=== PATIENT | male | born 1985 | race American Indian/Alaskan Native ===

== ENCOUNTER 2017-04-04 01:45 | Emergency (ER) | payer BC ==
[2017-04-04] MEDS ORDERED: NACL 0.9% 1000 ML 1,000 ML IV ONE ×2 (01:56→05:14)
[2017-04-04] MEDS ORDERED: MORPHINE IV ONE (01:56)
[2017-04-04] MEDS ORDERED: BOOSTRIX IM ONE (01:57)
[2017-04-04] MEDS ORDERED: ANCEF/NS 1 GM/50 ML 1 GM/50 ML BAG IV ONE (01:57)
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
[2017-04-04 02:04] LABS: Basophils % (Auto) 0.2 % (0.0-1.8); Eosinophils % (Auto) 0.4 % (0.0-4.3); Hematocrit 37.3 % (35.5-45.6); Hemoglobin 12.9 gm/dl (11.8-15.2); Mean Corpuscular HGB Conc 35 % (32-34); Mean Corpuscular Hemoglobin 33 pg (28-32); Mean Corpuscular Volume 94 fl (84-94); Platelet Count 198 K/mm3 (140-440); Red Blood Count 3.97 M/mm3 (3.65-5.03); Red Cell Distribution Width 12.1 % (13.2-15.2); White Blood Count 5.6 K/mm3 (4.5-11.0)
[2017-04-04 02:12] LABS: INR 1.08 (0.87-1.13)
[2017-04-04 02:14] LABS: Anion Gap 19 mmol/L; BUN/Creatinine Ratio 11.81; Blood Urea Nitrogen 13 mg/dL (9-20); Calcium 8.7 mg/dL (8.4-10.2); Carbon Dioxide 20 mmol/L (22-30); Chloride 101.9 mmol/L (98-107); Creatine Kinase 236 units/L (55-170); Glucose 119 mg/dL (75-100); Potassium 3.7 mmol/L (3.6-5.0); Sodium 137 mmol/L (137-145)
[2017-04-04] MEDS ORDERED: NACL ONE (02:34)
[2017-04-04] MEDS ORDERED: XYLOCAINE 2%/ EPI 1:200,000 INFILTRATI ONE (02:52)
[2017-04-04] MEDS ORDERED: NACL 0.9% IR ONE (02:52)
[2017-04-04] MEDS ORDERED: NACL 0.9% 500 ML IR ONE (02:56)
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
[2017-04-04] MEDS ORDERED: NACL 0.9% 1000 ML 1,000 ML ONE (05:14)
[2017-04-04 05:16] VITALS: BP 96/61
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
== END 2017-04-04 06:00 | disposition short-term general hospital (02) ==
LOC: ED 01:45
DX: S71.111A Laceration without foreign body, right thigh, initial encounter (principal); S81.812A Laceration without foreign body, left lower leg, initial encounter; S82.142B Displaced bicondylar fracture of left tibia, initial encounter for open fracture type I or II; F17.210 Nicotine dependence, cigarettes, uncomplicated; W33.01XA Accidental discharge of shotgun, initial encounter; Y93.89 Activity, other specified; Y92.89 Other specified places as the place of occurrence of the external cause; Y99.8 Other external cause status
CPT/HCPCS: 12002; 36415; 70450; 71010; 72125; 72170; 73551; 73560; 73590; 75635; 80048; 82550; 82962; 85025; 85610; 86850; 86900; 86901; 90715; 96361; 96365; 96372; 96375; 99285; G0480; J0690; J2270; J7030; Q9967; 80320

== ENCOUNTER 2019-01-10 12:25 | Emergency (ER) | payer SELFPAY ==
[2019-01-10 12:38] VITALS: BP 114/74
--- NOTE | 2019-01-10 12:40 | Emergency Department Report ---
Chief Complaint: Abdominal Pain Stated Complaint: CHEST/BACK PAIN Time Seen by Provider: 01/10/19 12:36 - HPI History of Present Illness: This is a 33 y.o. male that presents with abdominal pain radiating to left flank. He reports pain as a sharp. - Exam Vital Signs: Vital Signs 01/10/19 12:36 Temperature 97.4 F L Pulse Rate 86 Respiratory 16 Rate Blood Pressure 114/74 [Right] O2 Sat by Pulse 97 Oximetry MSE screening note: Focused history and physical exam performed. Due to findings the following was ordered: labs and CT of abdomen & pelvis ED Disposition for MSE Condition: Stable
[2019-01-10 13:09] LABS: Basophils % (Auto) 0.2 % (0.0-1.8); Eosinophils % (Auto) 0.6 % (0.0-4.3); Hematocrit 33.3 % (35.5-45.6); Hemoglobin 11.5 gm/dl (11.8-15.2); Lymphocytes # (Auto) 1.1 K/mm3 (1.2-5.4); Lymphocytes % (Auto) 20.4 % (13.4-35.0); Mean Corpuscular HGB Conc 35 % (32-34); Mean Corpuscular Hemoglobin 34 pg (28-32); Mean Corpuscular Volume 97 fl (84-94); Monocytes # (Auto) 0.5 K/mm3 (0.0-0.8); Monocytes % (Auto) 9.1 % (0.0-7.3); Platelet Count 187 K/mm3 (140-440); Red Blood Count 3.43 M/mm3 (3.65-5.03); Red Cell Distribution Width 12.9 % (13.2-15.2)
[2019-01-10 13:23] LABS: Alanine Aminotransferase 6 units/L (7-56); Albumin 3.7 g/dL (3.9-5); BUN/Creatinine Ratio 11; Blood Urea Nitrogen 9 mg/dL (9-20); Calcium 8.6 mg/dL (8.4-10.2); Hemolysis Index 6
[2019-01-10 15:03] LABS: Bilirubin,Urine NEG (Negative); Blood,Urine SM (Negative); Color,Urine Yellow (Yellow); Protein,Urine <15 mg/dL mg/dL (Negative); Urobilinogen,Urine < 2.0 mg/dL (<2.0)
[2019-01-10] MEDS ORDERED: TORADOL IM ONE (15:48)
--- NOTE | 2019-01-10 15:53 | Emergency Department Report ---
ED Back Pain/Injury HPI - General Chief Complaint: Abdominal Pain Stated Complaint: CHEST/BACK PAIN Time Seen by Provider: 01/10/19 12:36 Source: patient Limitations: No Limitations - History of Present Illness Initial Comments: This is a 33-year-old healthy looking male who presents to ED complaining left- sided back/flank pain starting yesterday. Patient denies dysuria, hematuria, fever, nausea vomiting or diarrhea. Patient also denies trauma injuries to the back MD Complaint: back pain -: Last night Place: home Radiation: none Severity: moderate Quality: sharp Consistency: constant Associated Symptoms: denies: difficulty walking, abdominal pain, nausea/vomiting - Related Data Previous Rx's Medication Instructions Recorded Last Taken Type Azithromycin [Zithromax Z-MURPHY] 250 mg PO DAILY #6 tablet 04/09/16 Unknown Rx traMADol [Ultram 50 MG tab] 50 mg PO Q6HR PRN #20 tablet 01/10/19 Unknown Rx Azithromycin [Zithromax TAB] 500 mg PO QDAY #7 tablet 01/11/19 Unknown Rx Allergies Allergy/AdvReac Type Severity Reaction Status Date / Time No Known Allergies Allergy Unverified 04/09/16 14:13 ED Review of Systems ROS: Stated complaint: CHEST/BACK PAIN Other details as noted in HPI Comment: All other systems reviewed and negative ED Past Medical Hx - Past Medical History Previous Medical History?: No - Surgical History Past Surgical History?: No - Social History Smoking Status: Current Some Day Smoker Substance Use Type: Alcohol - Medications Home Medications: Home Medications Medication Instructions Recorded Confirmed Last Taken Type Azithromycin [Zithromax Z-MURPHY] 250 mg PO DAILY #6 tablet 04/09/16 Unknown Rx traMADol [Ultram 50 MG tab] 50 mg PO Q6HR PRN #20 tablet 01/10/19 Unknown Rx Azithromycin [Zithromax TAB] 500 mg PO QDAY #7 tablet 01/11/19 Unknown Rx ED Physical Exam - General Limitations: No Limitations General appearance: alert, in no apparent distress - Head Head exam: Present: atraumatic, normocephalic - Eye Eye exam: Present: normal appearance - ENT ENT exam: Present: mucous membranes moist - Neck Neck exam: Present: normal inspection - Respiratory Respiratory exam: Present: normal lung sounds bilaterally. Absent: respiratory distress - Cardiovascular Cardiovascular Exam: Present: regular rate, normal rhythm. Absent: systolic murmur, diastolic murmur, rubs, gallop - GI/Abdominal GI/Abdominal exam: Present: soft, normal bowel sounds. Absent: distended, tenderness, guarding, rebound, mass - Rectal Rectal exam: Present: deferred - Extremities Exam Extremities exam: Present: normal inspection - Back Exam Back exam: Present: normal inspection, full ROM, CVA tenderness (L). Absent: CVA tenderness (R) - Neurological Exam Neurological exam: Present: alert, oriented X3, normal gait - Psychiatric Psychiatric exam: Present: normal affect, normal mood - Skin Skin exam: Present: warm, dry, intact, normal color. Absent: rash ED Course Vital Signs 01/10/19 12:36 Temperature 97.4 F L Pulse Rate 86 Respiratory 16 Rate Blood Pressure 114/74 [Right] O2 Sat by Pulse 97 Oximetry ED Medical Decision Making - Lab Data Result diagrams: 01/10/19 12:50 01/10/19 12:50 Laboratory Last Values WBC 5.6 K/mm3 (4.5-11.0) 01/10/19 12:50 RBC 3.43 M/mm3 (3.65-5.03) L 01/10/19 12:50 Hgb 11.5 gm/dl (11.8-15.2) L 01/10/19 12:50 Hct 33.3 % (35.5-45.6) L 01/10/19 12:50 MCV 97 fl (84-94) H 01/10/19 12:50 MCH 34 pg (28-32) H 01/10/19 12:50 MCHC 35 % (32-34) H 01/10/19 12:50 RDW 12.9 % (13.2-15.2) L 01/10/19 12:50 Plt Count 187 K/mm3 (140-440) 01/10/19 12:50 Lymph % (Auto) 20.4 % (13.4-35.0) 01/10/19 12:50 Dawson % (Auto) 9.1 % (0.0-7.3) H 01/10/19 12:50 Eos % (Auto) 0.6 % (0.0-4.3) 01/10/19 12:50 Baso % (Auto) 0.2 % (0.0-1.8) 01/10/19 12:50 Lymph # 1.1 K/mm3 (1.2-5.4) L 01/10/19 12:50 Dawson # 0.5 K/mm3 (0.0-0.8) 01/10/19 12:50 Eos # 0.0 K/mm3 (0.0-0.4) 01/10/19 12:50 Baso # 0.0 K/mm3 (0.0-0.1) 01/10/19 12:50 Seg Neutrophils % 69.7 % (40.0-70.0) 01/10/19 12:50 Seg Neutrophils # 3.9 K/mm3 (1.8-7.7) 01/10/19 12:50 Sodium 138 mmol/L (137-145) 01/10/19 12:50 Potassium 4.2 mmol/L (3.6-5.0) 01/10/19 12:50 Chloride 100.3 mmol/L (98-107) 01/10/19 12:50 Carbon Dioxide 26 mmol/L (22-30) 01/10/19 12:50 Anion Gap 16 mmol/L 01/10/19 12:50 BUN 9 mg/dL (9-20) 01/10/19 12:50 Creatinine 0.8 mg/dL (0.8-1.5) 01/10/19 12:50 Estimated GFR > 60 ml/min 01/10/19 12:50 BUN/Creatinine Ratio 11 % 01/10/19 12:50 Glucose 86 mg/dL (75-100) 01/10/19 12:50 Calcium 8.6 mg/dL (8.4-10.2) 01/10/19 12:50 Total Bilirubin 1.10 mg/dL (0.1-1.2) 01/10/19 12:50 AST 18 units/L (5-40) 01/10/19 12:50 ALT 6 units/L (7-56) L 01/10/19 12:50 Alkaline Phosphatase 83 units/L (35-129) 01/10/19 12:50 Total Protein 9.3 g/dL (6.3-8.2) H 01/10/19 12:50 Albumin 3.7 g/dL (3.9-5) L 01/10/19 12:50 Albumin/Globulin Ratio 0.7 % 01/10/19 12:50 Urine Color Yellow (Yellow) 01/10/19 14:17 Urine Turbidity Clear (Clear) 01/10/19 14:17 Urine pH 7.0 (5.0-7.0) 01/10/19 14:17 Ur Specific [place] 1.017 (1.003-1.030) 01/10/19 14:17 Urine Protein <15 mg/dl mg/dL (Negative) 01/10/19 14:17 Urine Glucose (UA) Neg mg/dL (Negative) 01/10/19 14:17 Urine Ketones Neg mg/dL (Negative) 01/10/19 14:17 Urine Blood Sm (Negative) 01/10/19 14:17 Urine Nitrite Neg (Negative) 01/10/19 14:17 Urine Bilirubin Neg (Negative) 01/10/19 14:17 Urine Urobilinogen < 2.0 mg/dL (<2.0) 01/10/19 14:17 Ur Leukocyte Esterase Neg (Negative) 01/10/19 14:17 Urine WBC (Auto) 1.0 /HPF (0.0-6.0) 01/10/19 14:17 Urine RBC (Auto) 18.0 /HPF (0.0-6.0) 01/10/19 14:17 - Radiology Data Radiology results: report reviewed, image reviewed PROCEDURE: CT ABDOMEN PELVIS WO CON TECHNIQUE: Computerized axial tomography of the abdomen and pelvis was performed without intravenous contrast. This study is performed without intravascular contrast material and its sensitivity for abdominal and pelvic pathology, including neoplasms, inflammation, abscess, free fluid, thrombosis, arterial dissection and infarction, is reduced compared with a contrast enhanced study. CT DOSE LENGTH PRODUCT: mGycm HISTORY: r/o kidney stones COMPARISONS: None . FINDINGS: Irregular areas of consolidation are noted involving right middle and left lower lobes. Additional patchy densities are noted in the right lower and left upper lobes. Minimal degree bilateral pleural effusions are noted. Liver, spleen, pancreas and adrenal glands are within normal limits. There are a few nonobstructive bilateral renal calculi measuring up to 3 mm. There is no obstructive uropathy. Urinary bladder is minimally filled. Aorta is of normal caliber. Mild degree of free fluid is noted in the pelvic cavity. There is no free air. Gallbladder is unremarkable. Small bowel loops are within normal limits. Moderate degree of residual stool is noted. Appendix is normal. Vertebral height is normal. IMPRESSION: Consolidations involving bilateral lungs are consistent with pneumonia. Minimal bilateral pleural effusions Nonobstructive bilateral renal calculi Mild degree of free fluid in the pelvic cavity This document is electronically signed by Staci Wu MD., January 10 2019 08:51:31 PM ET Transcribed By: [facility] [place] Dictated By: STACI WU Electronically Authenticated By: STACI WU Signed Date/Time: 01/10/192052 - Medical Decision Making Is is a 33-year-old male presents with kidney stones which are positive for flank pain. CT scan of the abdomen and pelvis shows bilateral pneumonia with minimal pleural effusion as well as her nonobstructive bilateral renal stones. Discussed all this findings with the patient. Discussed the patient a treatment of the pneumonia should check the mild effusions. Patient was not having any shortness of breath or respiratory symptoms at all in the ED. Patient will be treated for pneumonia. Patient took to follow-up with his primary care physician in a week. Discussed the patient if any worsening symptoms such as shortness of breath chest pain to return to ED immediately. Patient vital signs are normal he is in no acute distress. Critical care attestation.: If time is entered above; I have spent that time in minutes in the direct care of this critically ill patient, excluding procedure time. ED Disposition Clinical Impression: Flank pain, Pneumonia Back pain Qualifiers: Back pain location: low back pain Disposition: DC-01 TO HOME OR SELFCARE Is pt being admited?: No Does the pt Need Aspirin: No Condition: Stable Instructions: Low Back Strain (ED), Acute Low Back Pain (ED), Flank Pain (ED), Community-acquired Pneumonia (ED), Bacterial Pneumonia (ED) Additional Instructions: Make sure to follow up with the primary care physician as discussed. Take all your medications as you've been prescribed. If you have any worsening symptoms or develop new symptoms please return to ED immediately. Prescriptions: traMADol [Ultram 50 MG tab] 50 mg PO Q6HR PRN #20 tablet PRN Reason: Pain Azithromycin [Zithromax TAB] 500 mg PO QDAY #7 tablet Referrals: DIOR MTZTAYLORSVILLENUNAM IQUA MD NEDRA [Primary Care Provider] - 3-5 Days KAMILAH MYERS MD [Staff Physician] - 3-5 Days VARSHA DUNLAP MD [Staff Physician] - 3-5 Days Forms: Accompanied Note, Work/School Release Form(ED)
--- NOTE | 2019-01-10 20:53 | Cat Scan Report ---
PROCEDURE: CT ABDOMEN PELVIS WO CON TECHNIQUE: Computerized axial tomography of the abdomen and pelvis was performed without intravenous contrast. This study is performed without intravascular contrast material and its sensitivity for ab dominal and pelvic pathology, including neoplasms, inflammation, abscess, free fluid, thrombosis, art erial dissection and infarction, is reduced compared with a contrast enhanced study. CT DOSE LENGTH PRODUCT: mGycm HISTORY: r/o kidney stones COMPARISONS: None . FINDINGS: Irregular areas of consolidation are noted involving right middle and left lower lobes. Additional pa tchy densities are noted in the right lower and left upper lobes. Minimal degree bilateral pleural ef fusions are noted. Liver, spleen, pancreas and adrenal glands are within normal limits. There are a f ew nonobstructive bilateral renal calculi measuring up to 3 mm. There is no obstructive uropathy. Uri nary bladder is minimally filled. Aorta is of normal caliber. Mild degree of free fluid is noted in t he pelvic cavity. There is no free air. Gallbladder is unremarkable. Small bowel loops are within nor mal limits. Moderate degree of residual stool is noted. Appendix is normal. Vertebral height is keith l. IMPRESSION: Consolidations involving bilateral lungs are consistent with pneumonia. Minimal bilateral pleural effusions Nonobstructive bilateral renal calculi Mild degree of free fluid in the pelvic cavity This document is electronically signed by Sonu Wu MD., January 10 2019 08:51:31 PM ET
== END 2019-01-10 20:06 | disposition home or self-care (01) ==
LOC: ED 12:25
DX: J18.9 Pneumonia, unspecified organism (principal); M54.5 Low back pain; F17.200 Nicotine dependence, unspecified, uncomplicated
CPT/HCPCS: 36415; 74176; 80053; 81001; 85025; 96372; 99284; J1885